=== PATIENT | male | born 1970 | race Caucasian/White ===

== ENCOUNTER 2020-07-20 15:57 | Emergency (ER) | payer OTHER ==
[2020-07-20] MEDS ORDERED: Lidocaine 1% 30 ML SDV INJECT ONE (16:05)
[2020-07-20] MEDS ORDERED: Diphtheria,Pertussis(Acell),Tetanus Vaccine 0.5 ML SDV IM ONE (16:21)
--- NOTE | 2020-07-20 16:27 | EDM.PDOC ---
ED HPI GENERAL MEDICAL PROBLEM - General Chief Complaint: General Stated Complaint: FISH HOOK FINGER Time Seen by Provider: 07/20/20 16:05 Source of Information: Reports: Patient History Limitations: Reports: No Limitations - History of Present Illness INITIAL COMMENTS - FREE TEXT/NARRATIVE: fish hook (2) to left middle finger, attempted removal without success on the boat. Unknown last tetanus. Location: Reports: Upper Extremity, Left Quality: Reports: Ache Severity: Mild Worsens with: Reports: Movement Associated Symptoms: Reports: No Other Symptoms - Related Data Allergies Allergy/AdvReac Type Severity Reaction Status Date / Time No Known Allergies Allergy Verified 07/20/20 16:16 Home Meds: Home Meds NK [No Known Home Meds] 07/20/20 [History] Past Medical History - Past Health History Medical/Surgical History: Denies Medical/Surgical History Social & Family History - Family History Family Medical History: Noncontributory - Tobacco Use Smoking Status *Q: Never Smoker - Caffeine Use Caffeine Use: Reports: None - Recreational Drug Use Recreational Drug Use: No ED ROS GENERAL - Review of Systems Review Of Systems: See Below Constitutional: Reports: No Symptoms HEENT: Reports: No Symptoms Respiratory: Reports: No Symptoms Cardiovascular: Reports: No Symptoms Endocrine: Reports: No Symptoms GI/Abdominal: Reports: No Symptoms : Reports: No Symptoms Musculoskeletal: Reports: No Symptoms Skin: Reports: Wound (2 fish hook prongs left middle finger) Neurological: Reports: No Symptoms Psychiatric: Reports: No Symptoms Hematologic/Lymphatic: Reports: No Symptoms ED EXAM, GENERAL - Physical Exam Exam: See Below Exam Limited By: No Limitations General Appearance: Alert, No Apparent Distress Head: Atraumatic Neck: Full Range of Motion Respiratory/Chest: No Respiratory Distress (Male) Exam: Deferred Rectal (Males) Exam: Deferred Back Exam: Full Range of Motion Extremities: Normal Range of Motion Neurological: Alert, Oriented, No Motor/Sensory Deficits Psychiatric: Normal Affect, Normal Mood Skin Exam: Warm, Dry, Wound/Incision ED GENERAL MEDICAL PROCEDURES - Laceration/Wound Repair Left Middle Digit - 3rd (Middle) Distal NVT: Neuro & Vascular Intact, No Tendon Injury Anesthetic Type: Local Local Anesthesia - Lidocaine (Xylocaine): 1% Plain Local Anesthetic Volume: 2cc Skin Prep: Chlorhexidine (Hibiciens), Isopropyl Alcohol (Alcohol) (fish hook removed without issue, finger soaked in hibicleanse and NS, dressed with kerlix, xeroform, and bacitraicin.) Course - Vital Signs Last Recorded V/S: Last Vital Signs Temp 97.8 F 07/20/20 16:05 Pulse 74 07/20/20 16:05 Resp 18 07/20/20 16:05 BP 144/81 H 07/20/20 16:05 Pulse Ox 100 07/20/20 16:05 - Orders/Labs/Meds Orders: Active Orders 24 hr Category Date Time Status Vaccines to be Administered [RC] PER UNIT ROUTINE Care 07/20/20 16:21 Ordered Diphth,Pertuss(Acell),Tet Vac [Boostrix] Med 07/20/20 16:21 Once 0.5 ml IM .ONCE ONE Meds: Medications Discontinued Medications Generic Name Dose Route Start Last Admin Trade Name Freq PRN Reason Stop Dose Admin Lidocaine HCl 3 ml 07/20/20 16:05 Xylocaine-Mpf 1% INJECT 07/20/20 16:06 ONETIME ONE Departure - Departure Time of Disposition: 16:30 Disposition: Home, Self-Care 01 Condition: Good Clinical Impression: Acute foreign body of hand Qualifiers: Encounter type: initial encounter Laterality: left Qualified Code(s): S60.552A - Superficial foreign body of left hand, initial encounter - Discharge Information *PRESCRIPTION DRUG MONITORING PROGRAM REVIEWED*: Not Applicable *COPY OF PRESCRIPTION DRUG MONITORING REPORT IN PATIENT JOSÉ MIGUEL: Not Applicable Instructions: Hand or Foot Foreign Body, Adult Additional Instructions: return to ED for any increased or new concerning symptoms. Keep area clean and dry. Wash with soap and water. Watch for signs of infection as discussed. Sepsis Event Note (ED) - Evaluation Sepsis Screening Result: No Definite Risk - Focused Exam Vital Signs: Vital Signs Temp Pulse Resp BP Pulse Ox 07/20/20 16:05 97.8 F 74 18 144/81 H 100 - My Orders Last 24 Hours: My Active Orders 07/20/20 16:21 Vaccines to be Administered [RC] PER UNIT ROUTINE Diphth,Pertuss(Acell),Tet Vac [Boostrix] 0.5 ml IM .ONCE ONE - Assessment/Plan Last 24 Hours: My Active Orders 07/20/20 16:21 Vaccines to be Administered [RC] PER UNIT ROUTINE Diphth,Pertuss(Acell),Tet Vac [Boostrix] 0.5 ml IM .ONCE ONE
== END 2020-07-20 16:30 | disposition home or self-care (01) ==
LOC: LB.ED 15:57
DX: S60.453A Superficial foreign body of left middle finger, initial encounter (principal); Z23 Encounter for immunization; W45.8XXA Other foreign body or object entering through skin, initial encounter
CPT/HCPCS: 90471; 90715; 99283; J2001